=== PATIENT | female | born 1945 | race Caucasian/White ===

== ENCOUNTER → 2017-11-04 | Outpatient (CLI) | payer MEDICARE ==
[~2017-11-04] MED LIST: IBUP-1223 PO; LEVO75TA5 PO; OMEP40CA6 PO
== END | disposition home or self-care (01) ==
LOC: CFH 09:31
PROVIDERS: ATTEND Family Medicine
DX: Z13.820 Encounter for screening for osteoporosis (principal); M85.88 Other specified disorders of bone density and structure, other site; M81.0 Age-related osteoporosis without current pathological fracture; K44.9 Diaphragmatic hernia without obstruction or gangrene; M43.16 Spondylolisthesis, lumbar region; M47.816 Spondylosis without myelopathy or radiculopathy, lumbar region
CPT/HCPCS: 71020; 72110; 77080

== ENCOUNTER → 2017-11-28 | Outpatient (CLI) | payer MEDICARE | END | disposition home or self-care (01) | LOC: CFH 08:02 | PROVIDERS: ATTEND Family Medicine | DX: R94.5 Abnormal results of liver function studies (principal); Z90.49 Acquired absence of other specified parts of digestive tract | CPT/HCPCS: 76705; 94060 ==

== ENCOUNTER → 2020-01-10 | Outpatient (CLI) | payer MEDICARE ==
[~2020-01-10] MED LIST changes: +OMEP40CA42 PO; -OMEP40CA6 PO
== END | disposition home or self-care (01) ==
LOC: CARD 09:45
PROVIDERS: ATTEND Family Medicine
DX: R05 Cough (principal); R07.9 Chest pain, unspecified; R53.83 Other fatigue
CPT/HCPCS: 93017; 93350

== ENCOUNTER 2021-03-09 08:37 | Outpatient (CLI) | payer MEDICARE ==
[~2021-03-09 08:37] MED LIST changes: -OMEP40CA42 PO; +OMEP40CA8 PO
== END 2021-03-09 23:59 | disposition home or self-care (01) ==
LOC: CFH 08:37
PROVIDERS: ATTEND Family Medicine
DX: N64.4 Mastodynia (principal); M25.512 Pain in left shoulder
CPT/HCPCS: 76642; 77062; 77066; G0279